=== PATIENT | female | born 1970 | race Caucasian/White ===

== ENCOUNTER 2022-04-20 13:17 | Emergency (ER) | payer MEDICARE, MEDICAID, SELFPAY ==
[2022-04-20 13:32] VITALS: BP 154/95; PULSE 86; RESP 20; TEMP 36.8; O2SAT 96
--- NOTE | 2022-04-20 13:45 | DI.RAD_ITS ---
Exam(s) XR WRIST RT COMPLETE EXAM: XR WRIST RT COMPLETE CLINICAL HISTORY: fall onto hand, r/o fx. TECHNIQUE: 2D digital imaging was performed. COMPARISON: No exams were available for comparison FINDINGS: 3 views No evidence of acute fracture or dislocation. No significant ulnar variance. Bone density normal. No osseous lesions. IMPRESSION: No significant osseous findings. DATA REPOSITORY: RADIATION DOSE DELIVERED:
--- NOTE | 2022-04-20 13:45 | DI.RAD_ITS ---
Exam(s) XR FOOT LT COMPLETE EXAM: XR FOOT LT COMPLETE CLINICAL HISTORY: foot pain, r/o acute fracture. TECHNIQUE: 2D digital imaging was performed. COMPARISON: No exams were available for comparison FINDINGS: 3 views No evidence of acute fracture nor diastasis of the Lisfranc joint. Hallux valgus noted. Mild degene rative changes in the great toe metatarsophalangeal joint. Accessory ossicle on the medial aspect of the foot adjacent to the navicular tuberosity is identical to the opposite side. No pes planus. Sm all inferior calcaneal spur is noted. h IMPRESSION: Hallux valgus. No fractures evident. DATA REPOSITORY: RADIATION DOSE DELIVERED:
--- NOTE | 2022-04-20 13:45 | DI.RAD_ITS ---
Exam(s) XR FOOT RT COMPLETE EXAM: XR FOOT RT COMPLETE CLINICAL HISTORY: right foot pain, r/o fx. TECHNIQUE: 2D digital imaging was performed. COMPARISON: CR,XR XR FOOT LT COMPLETE from 04/20/2022 FINDINGS: 3 views No evidence of fracture or diastasis of the Lisfranc joint. 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 Mild degenerative changes in the great toe metatarsophalangeal joint. No hallux valgus. No p es planus. Somewhat high arch noted which is also similar to the opposite side. IMPRESSION: As above but no acute osseous findings. DATA REPOSITORY: RADIATION DOSE DELIVERED:
--- NOTE | 2022-04-20 13:45 | DI.RAD_ITS ---
Exam(s) XR HAND RT COMPLETE EXAM: XR HAND RT COMPLETE CLINICAL HISTORY: fall onto hand, r/o fracture. TECHNIQUE: 2D digital imaging was performed. COMPARISON: No exams were available for comparison FINDINGS: 3 views There is no evidence of acute fracture or dislocation or abnormal soft tissue calcifications. Bone d ensity normal. No radiopaque foreign body. IMPRESSION: No significant osseous findings. DATA REPOSITORY: RADIATION DOSE DELIVERED:
--- NOTE | 2022-04-20 13:49 | ED.GENADUL_ITS ---
Discharge Plan Disposition Patient Disposition: HOME Condition: Stable Discharge Details Clinical Impression: Sprain of right hand, Right wrist sprain, Chronic foot pain Primary Care Provider: None,None ED Provider: Diandra Lucas Discharge Instructions Instructions: Chronic Pain (ED), Wrist Sprain (ED) Additional Instructions: The x-rays of your hand and wrist today show no evidence of fracture. The x- rays of your feet show you have arthritis but no evidence of acute fracture. Rest, ice, and elevate the affected area as much as possible. Alternate tylenol and motrin as needed and directed for pain. Follow-up with your primary care doctor for reevaluation as needed and with podiatry for your chronic foot pain. Return immediately to the emergency department if you develop any worsening or new concerning symptoms. Referrals: Stacy Batista DPM [[facility] STAFF PHYSICIAN] - Discharge Data Discharge Physician: Diandra Lucas Medical Decision Making 51-year-old female who is homeless presents for right hand and wrist pain status post fall yesterday and bilateral foot pain which has been chronic for 3 years causing difficulty standing and walking. While attempting to remove patient's left shoe in the waiting room she said Ow, don't do that you b*tch. Security then presented to the waiting room and pt was apolegetic. Patient is disheveled and has a strong smell of odor. She is afebrile and otherwise appears nontoxic. Her right hand and wrist and bilateral feet are normal for infection without trauma or cellulitis. Patient referred for right wrist and hand x-rays which were unremarkable. Her bilateral foot x-rays note arthritis but no other acute findings. Patient was able to ambulate in the emergency department. An Dmitriy wrap was placed to her right hand. She was given podiatry follow-up information. Patient requested to speak to care management stating she is homeless. She was then noted to be wandering the emergency department without a mask and security notified. Medical Records Medical records reviewed: Yes I reviewed the patient's medical records. Imaging Data Radiologic Study: Radiologist's impression: XR Right Hand Exam date and time: 04/20/2022 1:58 PM Age: 51 years old Clinical indication: Other: Fall onto hand TECHNIQUE: Imaging protocol: Radiologic exam of the Right hand. Views: 3 or more views. COMPARISON: CR XR WRIST RT COMPLETE 04/20/2022 1:58 PM FINDINGS: Bones/joints: There is no evidence of acute fracture. There is no evidence of joint malalignment or dislocation. Soft tissues: No focal soft tissue swelling. IMPRESSION: 1. No evidence of acute fracture. 2. No evidence of acute dislocation. XR Right Wrist Exam date and time: 04/20/2022 1:58 PM Age: 51 years old Clinical indication: Other: Fall onto right hand/wrist TECHNIQUE: Imaging protocol: Radiologic exam of the Right wrist. Views: 3 or more views. COMPARISON: No relevant prior studies available. FINDINGS: Bones/joints: There is no evidence of acute fracture. There is no evidence of joint malalignment or dislocation. Soft tissues: No focal soft tissue swelling. IMPRESSION: 1. No evidence of acute fracture. 2. No evidence of acute dislocation. XR Right Foot Exam date and time: 04/20/2022 2:06 PM Age: 51 years old Clinical indication: Other: Foot pain TECHNIQUE: Imaging protocol: Radiologic exam of the Right foot. Views: 3 or more views. COMPARISON: No relevant prior studies available. FINDINGS: Bones/joints: Degenerative changes of the 1st metatarsophalangeal joint. There is no evidence of acute fracture. There is no evidence of joint malalignment or dislocation. Soft tissues: No focal soft tissue swelling. IMPRESSION: 1. Degenerative changes of the 1st metatarsophalangeal joint. 2. No evidence of acute fracture. 3. No evidence of acute dislocation XR Left Foot Exam date and time: 04/20/2022 2:04 PM Age: 51 years old Clinical indication: Other: Foot pain TECHNIQUE: Imaging protocol: Radiologic exam of the Left foot. Views: 3 or more views. COMPARISON: No relevant prior studies available. FINDINGS: Bones/joints: Hallux valgus deformity is present. Degenerative changes of the 1st metacarpophalangeal joint. There is no evidence of acute fracture. There is no evidence of joint malalignment or dislocation. Calcaneal spurs are present. Calcifications noted distal to the medial malleolus and may represent an old avulsion fracture or secondary center of ossification. Soft tissues: Medial soft tissue swelling. IMPRESSION: 1. Hallux valgus deformity is present. 2. Degenerative changes of the 1st metacarpophalangeal joint. 3. Medial soft tissue swelling. 4. No evidence of acute fracture. 5. No evidence of acute dislocation. HPI General Mode of arrival: ambulatory . Date/Time Provider Initiated Documentation: 04/20/22 13:38 . Limitations to Documentation: no limitations . Information obtained by: patient . HPI Narrative: Pt is a 51yo F presents for right hand and wrist pain after fall onto her right hand yesterday. She also is complaining of bilateral foot pain stating she has having difficulty walking and standing due to her foot pain. Patient states she has been sleeping on the sidewalk and is homeless. She states she was dropped off by a man who son is a leonor . When asked if she has a history of foot pain before, she stated she has a history of foot disease. Related Data Allergies Allergy/AdvReac Type Severity Reaction Status Date / Time No Known Allergies Allergy Unverified 04/20/22 13:35 General Stated Complaint: Orthopedic PRISCILLA: 4 Review of Systems All systems reviewed & are unremarkable except as noted in HPI and below Constitutional Constitutional: Reports as per HPI, Denies chills and Denies fever(s) Eyes Eyes: Denies blurry vision ENT Ears, Nose, Mouth, and Throat: Denies dizziness, Denies sore throat and Denies throat swelling Cardiovascular Cardiovascular: Denies chest pain and Denies dyspnea Respiratory Respiratory: Denies cough and Denies dyspnea Gastrointestinal Gastrointestinal: Denies abdominal pain, Denies diarrhea and Denies vomiting Genitourinary Genitourinary: Denies hematuria and Denies dysuria Musculoskeletal Musculoskeletal: Denies back pain and Denies numbness Comments: Bilateral foot, R hand/wrist pain Integumentary/Breasts Skin/Breast: Denies lesions and Denies rash Neurologic Neurologic: Denies dizziness, Denies localized weakness and Denies numbness Allergic/Immunologic Allergic/Immunologic: Denies throat swelling [facility] Active Problems (Updated 04/20/22 @ 14:48 by Diadnra Lucas DO) Sprain of right hand (Acute) Right wrist sprain (Acute) Chronic foot pain (Acute) Social History Smoking/Tobacco Use Status: Current every day Smoking risk assessment performed?: Yes Alcohol Intake: current Alcohol Intake frequency: 0-2 drinks per day Substance use type: marijuana Do you feel safe at home: Yes Do you feel safe in your relationship?: Yes Exam Const General: cooperative, no acute distress and disheveled Orientation: alert, awake and oriented x3 HENMT Head: normal to inspection Mouth: oral mucosae normal Eyes General: appearance normal, both eyes and all related structures Neck Neck: normal visual inspection Resp Effort & Inspection: normal respiratory effort and able to speak in complete sentences Cardio Rate: regular rate Skin General skin exam: no rashes or lesions noted Neuro General: patient alert, patient awake and patient oriented x3 Motor: muscle tone normal throughout Extrem Other: Pain with palpation and range of motion to right wrist and hand. There is no obvious evidence of trauma or deformity. Feet normal to inspection bilaterally without evidence of trauma or cellulitis. Psych Appearance: grossly normal Affect: normal affect Course Vital Signs Vital signs: Vital Signs Temperature 98.2 F 04/20/22 13:32 Pulse 86 04/20/22 13:32 Respiratory Rate 20 04/20/22 13:32 Blood Pressure 154/95 H 04/20/22 13:32 Pulse Oximetry 96 04/20/22 13:32 Temperature 98.2 F 04/20/22 13:32 Temperature Source Temporal Artery Scan 04/20/22 13:32 Pulse 86 04/20/22 13:32 Respiratory Rate 20 04/20/22 13:32 Respiratory Effort Non-Labored 04/20/22 13:35 Blood Pressure 154/95 H 04/20/22 13:32 Blood Pressure Position Sitting 04/20/22 13:32 Pulse Oximetry 96 04/20/22 13:32 Oxygen Delivery Method Room Air 04/20/22 13:32 Oxygen Flow Rate 0 04/20/22 13:32 Pain Level 10 04/20/22 13:32
--- NOTE | 2022-04-20 14:31 | DI.VRAD_ITS ---
PROCEDURE INFORMATION: Exam: XR Left Foot Exam date and time: 04/20/2022 2:04 PM Age: 51 years old Clinical indication: Other: Foot pain TECHNIQUE: Imaging protocol: Radiologic exam of the Left foot. Views: 3 or more views. COMPARISON: No relevant prior studies available. FINDINGS: Bones/joints: Hallux valgus deformity is present. Degenerative changes of the 1st metacarpophalangeal joint. There is no evidence of acute fracture. There is no evidence of joint malalignment or dislocation. Calcaneal spurs are present. Calcifications noted distal to the medial malleolus and may represent an old avulsion fracture or secondary center of ossification. Soft tissues: Medial soft tissue swelling. IMPRESSION: 1. Hallux valgus deformity is present. 2. Degenerative changes of the 1st metacarpophalangeal joint. 3. Medial soft tissue swelling. 4. No evidence of acute fracture. 5. No evidence of acute dislocation. Dictated and Authenticated by: Josr Schwab MD. Ordering:MONTSE Jim MD
--- NOTE | 2022-04-20 14:31 | DI.VRAD_ITS ---
PROCEDURE INFORMATION: Exam: XR Right Hand Exam date and time: 04/20/2022 1:58 PM Age: 51 years old Clinical indication: Other: Fall onto hand TECHNIQUE: Imaging protocol: Radiologic exam of the Right hand. Views: 3 or more views. COMPARISON: CR XR WRIST RT COMPLETE 04/20/2022 1:58 PM FINDINGS: Bones/joints: There is no evidence of acute fracture. There is no evidence of joint malalignment or dislocation. Soft tissues: No focal soft tissue swelling. IMPRESSION: 1. No evidence of acute fracture. 2. No evidence of acute dislocation. Dictated and Authenticated by: Josr Schwab MD. Ordering:MONTSE Jim MD
--- NOTE | 2022-04-20 14:32 | DI.VRAD_ITS ---
PROCEDURE INFORMATION: Exam: XR Right Foot Exam date and time: 04/20/2022 2:06 PM Age: 51 years old Clinical indication: Other: Foot pain TECHNIQUE: Imaging protocol: Radiologic exam of the Right foot. Views: 3 or more views. COMPARISON: No relevant prior studies available. FINDINGS: Bones/joints: Degenerative changes of the 1st metatarsophalangeal joint. There is no evidence of acute fracture. There is no evidence of joint malalignment or dislocation. Soft tissues: No focal soft tissue swelling. IMPRESSION: 1. Degenerative changes of the 1st metatarsophalangeal joint. 2. No evidence of acute fracture. 3. No evidence of acute dislocation. Dictated and Authenticated by: Josr Schwab MD. Ordering:MONTSE Jim MD
--- NOTE | 2022-04-20 14:32 | DI.VRAD_ITS ---
PROCEDURE INFORMATION: Exam: XR Right Wrist Exam date and time: 04/20/2022 1:58 PM Age: 51 years old Clinical indication: Other: Fall onto right hand/wrist TECHNIQUE: Imaging protocol: Radiologic exam of the Right wrist. Views: 3 or more views. COMPARISON: No relevant prior studies available. FINDINGS: Bones/joints: There is no evidence of acute fracture. There is no evidence of joint malalignment or dislocation. Soft tissues: No focal soft tissue swelling. IMPRESSION: 1. No evidence of acute fracture. 2. No evidence of acute dislocation. Dictated and Authenticated by: Josr Schwab MD. Ordering:MONTSE Jim MD
== END 2022-04-20 15:05 | disposition home or self-care (01) ==
PROVIDERS: Emergency Provider Physician Assistant
DX: S63.91XA Sprain of unspecified part of right wrist and hand, initial encounter (principal); S63.501A Unspecified sprain of right wrist, initial encounter; G89.11 Acute pain due to trauma; G89.29 Other chronic pain; M79.672 Pain in left foot; M79.671 Pain in right foot; M19.071 Primary osteoarthritis, right ankle and foot; M19.072 Primary osteoarthritis, left ankle and foot; F17.200 Nicotine dependence, unspecified, uncomplicated; W04.XXXA Fall while being carried or supported by other persons, initial encounter
CPT/HCPCS: 99284; 73110; 73130; 73630; 99282